=== PATIENT | female | born 1970 | race Caucasian/White ===

== ENCOUNTER → 2019-10-17 | Day surgery (SDC) | payer OTHER ==
[2019-10-12 11:27] LABS: ANION GAP 15.3 mmol/L (8-16); BLOOD UREA NITROGEN 12 mg/dL (7-26); BUN/CREATININE RATIO 15 (6-25); CALCIUM 9.3 mg/dL (8.4-10.2); CARBON DIOXIDE 24 mmol/L (22-29); CHLORIDE 103 mmol/L (98-107); CREATININE, SERUM 0.79 mg/dL (0.57-1.11); EST GLOMERULAR FILTRATION RATE > 60 ML/MIN (60-); GLUCOSE 101 mg/dL (74-118); POTASSIUM 3.3 mmol/L (3.5-5.1); SODIUM 139 mmol/L (136-145)
[~2019-10-17] MED LIST: BUPIVACAINE HCL 0.5% INJ 30 ML VIAL INJ ONE; CEFAZOLIN SOD 1 GM/NS 50ML 50 ML IV ONE; DEXAMETHASONE SOD PHOS INJ 4 MG/ML VIAL ONE; FENTANYL CITRATE/PF 100MCG/2 ML INJ ONE; KETOROLAC TROMETHAMINE 30 MG/ML VIAL ONE; LEVONORG-ETH E1 EACH PO; LIDOCAINE HCL 2% LOCAL INJ 5 ML SDV VIAL INJ ONE; MIDAZOLAM HCL 2 MG/2 ML VIAL ONE; ONDANSETRON HCL INJ 2MG/ML 2ML 2 MG/ML VIAL ONE; PROBIOTIC & AC1 EACH PO; PROPOFOL IV EMULSION 10 MG/ML 20 ML VIAL ONE; SEVOFLURANE INHAL SOLN 250 ML PEN BTL ONE; VALSARTAN-HCTZ1 EAC2 PO; VITAMIN D3 PO
[2019-10-17 08:30] VITALS: BP 123/50
--- NOTE | 2019-10-17 08:43 | Operative Report ---
DATE OF PROCEDURE: 10/17/2019 SURGEON: Delfina Pérez DPM PREOPERATIVE DIAGNOSES: 1. Left foot metatarsal cuneiform exostosis. 2. Left medial dorsal cutaneous nerve neuritis. PLANNED PROCEDURES: 1. First metatarsal cuneiform dorsal exostectomy. 2. External neurolysis, left medial dorsal cutaneous nerve. CLAY WASHER: Delfina Pérez DPM ANESTHESIA: General with a postoperative block consisting of 10 mL of 0.5% Marcaine plain mixed with 1 mL of dexamethasone phosphate. HEMOSTASIS: Pneumatic thigh tourniquet set at 350 mmHg for a total time of approximately 30 minutes. MATERIALS: 3-0 Vicryl, 4-0 Prolene. ESTIMATED BLOOD LOSS: Less than 10 mL. PATHOLOGY: None. PROCEDURE NOTE: The patient was seen in the preoperative waiting room, and the correct procedure and site was identified. The patient was brought to the operating room and placed on the operating table in the supine position. General anesthesia was initiated. At this time, a well-padded pneumatic tourniquet was placed about the patient's left thigh. The left foot, ankle, and leg were then scrubbed, prepped, and draped in the usual aseptic manner. The left foot, ankle, and leg was exsanguinated with an Esmarch bandage. A pneumatic thigh tourniquet was inflated to 350 mmHg for a total time of approximately 20 minutes. Attention was directed to the dorsal aspect of patient's left first metatarsal cuneiform joint where a dorsal prominence was noted. A 4 cm linear incision was directly made over this prominence at the level of the metatarsal cuneiform joint. The dissection was carried down with blunt and sharp dissection. The incision was carried through the subcutaneous tissue them from deep or underlying structures. All vital and neurovascular structures including the medial dorsal cutaneous nerve was identified, retracted medially and laterally. The incision was carried down to the 1st metatarsal joint capsule, which was incised to allow for good visualization of the osteophyte as well as the exostosis. Utilizing an osteotome and mallet as well as a rongeur and rasp, the exostosis was excised and passed off to the back table. This was confirmed via intraoperative fluoroscopy. Next, dissection was carried down to the medial dorsal cutaneous nerve, which was dissected proximally and distally and noted to be inflamed and tortuous. Well visualization of the nerve was noted. 1 mL of dexamethasone phosphate was placed directly over the nerve. Next, the wound was copiously irrigated with sterile saline. The deep tissues were not reapproximated to allow for further entrapment of the nerve. The incision site was reapproximated with a 3-0 Vicryl, and the skin was closed using a simple interrupted sutures with 4-0 Prolene. The patient tolerated the procedure and anesthesia well. The patient was transferred to the postoperative recovery room with vital signs stable and vascular status intact. The patient was monitored there for a short period time before being sent home with the following written and oral instructions. 1. Keep the dressing clean, dry, and intact. 2. The patient is to remain partial weightbearing in a postop shoe to avoid excessive ambulation until being seen in the office. 3. The patient was given office number and instructed to contact us if any problems arise. Dictated by Delfina Pérez DPM S SHERRIE Taveras (Charley)/[facility] /[id number]
== END | disposition home or self-care (01) ==
LOC: OR 05:11
PROVIDERS: ATTEND Podiatrist Foot & Ankle Surgery
DX: M25.775 Osteophyte, left foot (principal); G58.8 Other specified mononeuropathies; I10 Essential (primary) hypertension; Z01.810 Encounter for preprocedural cardiovascular examination; Z01.812 Encounter for preprocedural laboratory examination; Z11.59 Encounter for screening for other viral diseases
CPT/HCPCS: 28104; 36415 ×2; 64704; 80048; 81025; 84132; 87635; 93005; J0690; J1100; J1885; J2001; J2250; J2405; J2704; J3010